=== PATIENT | male | born 1940 | race Caucasian/White ===

== ENCOUNTER 2018-12-31 08:26 | Day surgery (SDC) | payer OTHER ==
[~2018-12-31] VITALS: Ht 177.8 cm; Wt 100.4 kg
[~2018-12-31 08:26] MED LIST: ALBU90OI INH; Aerochamber1 EACH MC; CODGUAEL PO; CYCL10 PO; Flonase 0.05% N16 GM; GABA300 PO; GABA600 PO; KETO10 PO; LIDO700A20 TOP; MSM1000 MG PO; NAPR550 PO; Prednisone20 MG PO; VOLTAREN100 GM TOP; Valium5 MG PO
== END 2018-12-31 10:54 | disposition home or self-care (01) ==
LOC: ORSCSDS 08:26
PROVIDERS: Ophthalmology
PROC: 08RJ3JZ Replacement of Right Lens with Synthetic Substitute, Percutaneous Approach (ICD-10-PCS; principal; 2018-12-31 10:00)
DX: H25.11 Age-related nuclear cataract, right eye (principal); G47.33 Obstructive sleep apnea (adult) (pediatric); Z87.891 Personal history of nicotine dependence; Z79.899 Other long term (current) drug therapy
CPT/HCPCS: J2250; J3010; J3301; J7120; V2632

== ENCOUNTER 2019-01-28 08:32 | Day surgery (SDC) | payer OTHER ==
[~2019-01-28] VITALS: Ht 180.3 cm; Wt 99.5 kg
--- NOTE | 2019-01-28 09:33 | NUR ---
01/28/19 0933 Marcella Richmond CHANGE OF PT ORDER RESULTED IN THIS PT GOING INTO OR 1/2 HR EARLIER THAN SCHEDULED. 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
== END 2019-01-28 10:11 | disposition home or self-care (01) ==
LOC: ORSCSDS 08:32
PROVIDERS: Ophthalmology
PROC: 08RK3JZ Replacement of Left Lens with Synthetic Substitute, Percutaneous Approach (ICD-10-PCS; principal; 2019-01-28 10:00)
DX: H25.12 Age-related nuclear cataract, left eye (principal); G47.33 Obstructive sleep apnea (adult) (pediatric); Z87.891 Personal history of nicotine dependence; G62.9 Polyneuropathy, unspecified; Z79.899 Other long term (current) drug therapy
CPT/HCPCS: J2001; J2250; J3010; J3301; J7120; V2632

== ENCOUNTER 2019-12-01 05:58 | Day surgery (SDC) | payer OTHER ==
[~2019-12-01] VITALS: Ht 177.8 cm; Wt 102.9 kg
[~2019-12-01 05:58] MED LIST changes: +GLUC500 PO; +PRED20 PO; +PREG75 PO
--- NOTE | 2019-12-01 06:49 | NUR ---
Ambulatory in Day Surgery History, Chart, Medications and Allergies reviewed before start of procedure. Lungs clear T/O to Auscultation. Patient confirms NPO status and agrees with scheduled surgery. Pre-Op teaching done. Pt verbalizes understanding.
--- NOTE | 2019-12-01 17:18 | NUR ---
RECENTLY RECIEVED REPORT, ASSUMING CARE OF PT AT THIS TIME.
--- NOTE | 2019-12-01 17:18 | NUR ---
SHIFT SUMMARY PT A&OX4, VSS, S/P L TKA, AQUACEL CDI/KASSIE WRAP. PAIN MANAGED W/5 MG OXY, TYLENOL & TORADOL. AMBULATION W/FWW & GB, TO BRP/CHAIR. NALINI PO, DENIES N&V. PHYSICAL THERAPY EVAL'D TODAY; PLAN FOR SPOUSE TO BE HERE FOR PT AT 1000 IN AM. REPORT GIVEN TO CAIN ROBERT.
--- NOTE | 2019-12-02 03:20 | NUR ---
POD 1 S/P L TKA. PT VSS T/O NIGHT. DRESSING CDI, POLAR PACK IN PLACE. CIRC CHECKS WNL. PAIN MGD W/1 OXYCODONE +SCHEDULED TYLENOL/TORADOL W/REP RELIEF. PT NALINI REG PO, NO N/V, IS VOIDING W/O DIFFICULTY. PT AMB W/FWWW+SBA, NALINI WELL. PT USING CALL LIGHT FOR ASSISTANCE, REPORT GIVEN TO JAKOB CARTAGENA.
[2019-12-02 04:22] LABS: BASOPHILS ABSOLUTE AUTO 0.01 K/mm3 (0.00-0.23); BASOPHILS PERCENT AUTO 0 % (0-2); EOSINOPHILS ABSOLUTE AUTO 0.08 K/mm3 (0.00-0.68); EOSINOPHILS PERCENT AUTO 1 % (0-6); Hematocrit 41.1 % (37.0-53.0); Hemoglobin 13.5 g/dL (13.5-17.5); IMMATURE GRAN ABSOLUTE AUTO 0.03 K/mm3 (0.00-0.10); IMMATURE GRAN PERCENT AUTO 0 % (0-1); LYMPHOCYTES ABSOLUTE AUTO 1.09 K/mm3 (0.84-5.20); LYMPHOCYTES PERCENT AUTO 12 % (21-46); MONOCYTES ABSOLUTE AUTO 0.96 K/mm3 (0.16-1.47); MONOCYTES PERCENT AUTO 11 % (4-13); Mean Corpuscular HGB 31.3 pg (26.0-34.0); Mean Corpuscular HGB Conc 32.8 g/dL (31.5-36.5); Mean Corpuscular Volume 95 fL (80-100); Mean Platelet Volume 11.8 fL (9.1-12.4); NEUTROPHILS ABSOLUTE AUTO 6.66 K/mm3 (1.96-9.15); NEUTROPHILS PERCENT AUTO 76 % (41-73); Platelet Count 119 K/mm3 (150-400); RDW Coefficient Variation 12.4 % (11.7-14.2); RDW Standard Deviation 43.9 fL (35.1-46.3); Red Blood Cell Count 4.31 M/mm3 (4.30-5.90); White Blood Cell Count 8.83 K/mm3 (4.00-11.30)
--- NOTE | 2019-12-02 04:29 | NUR ---
ASSUMED CARE OF PT FROM JAKOB ORELLANA AT APPROX 0330 TODAY. PT A/OX4 WITH VSS. IS CURRENTLY UP IN CHAIR, DRESSED, DRINKING COFFEE AND WATCHING TV. DENIES PAIN OR NEED FOR PAIN MEDICATION. HAS CALL LIGHT IN REACH. DENIES NEEDS. WILL CONT TO MONITOR AND GIVE REPORT TO ONCOMING RN.
[2019-12-02 04:41] LABS: Anion Gap 5 mmol/L (6-16); Blood Urea Nitrogen 21 mg/dL (8-24); Bun/Creatinine Ratio 25.1 (12.0-20.0); CO2, Blood 23 mmol/L (21-32); Calcium, Blood 8.3 mg/dL (8.5-10.1); Chloride, Blood 111 mmol/L (98-108); Creatinine, Blood 0.84 mg/dL (0.60-1.20); Glomerular Filtration Rate >60 (60-); Glucose, Blood 152 mg/dL (70-99); Potassium, Blood 4.6 mmol/L (3.5-5.5); Sodium, Blood 139 mmol/L (136-145)
[2019-12-02] MEDS ORDERED: ASPI81CH PO (09:02)
--- NOTE | 2019-12-02 11:30 | NUR ---
1122 DISCHARGE INSTRUCTIONS REVIEWED WITH PATIENT AND HIS . PT STATES HE FEELS READY TO DISCHARGE AND HAS NO QUESTIONS OR CONCERNS REGARDING DISCHARGE
== END 2019-12-02 11:25 | disposition home or self-care (01) ==
LOC: ORSCMMR 05:58 → ORD 07:30 → ORSCMMR 07:30 → SURS 09:51 → ORSCMMR 12-02 11:25
PROVIDERS: Orthopaedic Surgery
PROC: 8E0YXBZ Computer Assisted Procedure of Lower Extremity (ICD-10-PCS; principal; 2019-12-01 07:30)
PROC: 0SRD0JA Replacement of Left Knee Joint with Synthetic Substitute, Uncemented, Open Approach (ICD-10-PCS; principal; 2019-12-01 07:30)
DX: M17.12 Unilateral primary osteoarthritis, left knee (principal); G47.33 Obstructive sleep apnea (adult) (pediatric); Z79.899 Other long term (current) drug therapy; Z87.891 Personal history of nicotine dependence; Z79.82 Long term (current) use of aspirin
CPT/HCPCS: 36415; 73560-LT; 80048; 85025; 88300; 97110; 97116; 97162; 97530; J0171; J0690; J0735; J1100; J1885; J2250; J2405; J2704; J2795; J7120

== ENCOUNTER → 2020-07-21 | Outpatient (CLI) | payer OTHER ==
[~2020-07-21] MED LIST changes: +ASPI81CH PO
[2020-07-22 10:41] LABS: Stool Occult Bld Immuno 1 Negative (NEGATIVE)
== END | disposition home or self-care (01) ==
LOC: LAB SHORT 07:00 → PLD 07:00 → LAB FUT 07-21 11:35
PROVIDERS: Family Medicine
DX: Z12.11 Encounter for screening for malignant neoplasm of colon (principal)
CPT/HCPCS: G0328

== ENCOUNTER 2024-06-19 13:26 | Day surgery (SDC) | payer OTHER ==
[~2024-06-19] VITALS: Ht 175.3 cm; Wt 97.9 kg
[~2024-06-19 13:26] MED LIST changes: +Atropine Sulfate 0.1 MG/ML 10ML SYR ONE; +Glycopyrrolate 0.2 MG/ML 1MLVIAL ONE; +Lactated Ringer's 1,000 ML IV ONE; +Lidocaine 2% 5 ML SDV ONE; +Methylene Blue 1% 100 MG/10 ML VIAL ONE; +Ondansetron HCl 2 MG / ML 2ML Vial ONE; +ePHEDrine Sulfate 50 MG/ML 1ML Injection ONE
[2024-06-19] MEDS ORDERED: Lactated Ringer's 1,000 ML IV ONE (15:30)
[2024-06-19] MEDS ORDERED: propofoL 50 ML IV ONE ×2 (15:54→16:29)
[2024-06-19] MEDS ORDERED: Midazolam HCL 1 MG/ML 5MLVIAL ONE (16:09)
[2024-06-19 17:26] VITALS: BP 114/68
== END 2024-06-19 17:25 | disposition home or self-care (01) ==
LOC: ORSCSDS 13:26
PROVIDERS: Internal Medicine Gastroenterology
PROC: 0DBN8ZX Excision of Sigmoid Colon, Via Natural or Artificial Opening Endoscopic, Diagnostic (ICD-10-PCS; principal; 2024-06-19 15:00)
PROC: 0DBK8ZX Excision of Ascending Colon, Via Natural or Artificial Opening Endoscopic, Diagnostic (ICD-10-PCS; principal; 2024-06-19 15:00)
PROC: 0DBL8ZX Excision of Transverse Colon, Via Natural or Artificial Opening Endoscopic, Diagnostic (ICD-10-PCS; principal; 2024-06-19 15:00)
DX: Z12.11 Encounter for screening for malignant neoplasm of colon (principal); D12.2 Benign neoplasm of ascending colon; D12.3 Benign neoplasm of transverse colon; D12.5 Benign neoplasm of sigmoid colon; K57.30 Diverticulosis of large intestine without perforation or abscess without bleeding; K64.8 Other hemorrhoids; R19.5 Other fecal abnormalities; I10 Essential (primary) hypertension; G47.33 Obstructive sleep apnea (adult) (pediatric); E66.9 Obesity, unspecified; Z68.31 Body mass index [BMI] 31.0-31.9, adult
CPT/HCPCS: 82947; 88305; J0461; J2250; J2405; J2704; J7120; Q9968